=== PATIENT | female | born 1985 | race Caucasian/White ===

== ENCOUNTER 2017-06-20 22:31 | Emergency (ER) | payer OTHER ==
[~2017-06-20] VITALS: Ht 162.6 cm; Wt 76.4 kg
[2017-06-20 22:37] VITALS: BP 140/89; TEMP 98.6
[2017-06-20] MEDS ORDERED: TOPAMAX 100MG100 M1 PO (22:40)
[2017-06-21] MEDS ORDERED: AMITRIPTYLINE H75 M1 PO (01:26)
[2017-06-21] MEDS ORDERED: ZANAFLEX2 MG PO (01:27)
[2017-06-21] MEDS ORDERED: BUSPAR5 MG PO (01:27)
[2017-06-21] MEDS ORDERED: LOW-OGESTREL 281 TAB PO (01:27)
[2017-06-21] MEDS ORDERED: MIDRIN 325 MG-11 CAP PO (01:47)
[2017-06-21] MEDS ORDERED: VOLTAREN 50MG T50 MG PO (01:48)
[2017-06-21 02:56] VITALS: PULSE 84
== END 2017-06-21 02:57 | disposition home or self-care (01) ==
LOC: COL.ER 22:31
DX: G43.909 Migraine, unspecified, not intractable, without status migrainosus (principal); F43.10 Post-traumatic stress disorder, unspecified
CPT/HCPCS: J1100; J1200; J1885; J2765; J7030

== ENCOUNTER 2023-06-08 10:38 | Inpatient (IN) | payer OTHER ==
[~2023-06-08] VITALS: Ht 160 cm; Wt 95.0 kg
[2023-06-08] VITALS (23 sets, daily range): BP systolic 104–141; BP diastolic 57–91; PULSE 82–122; TEMP 97.5–98.4
[~2023-06-08 10:38] MED LIST: AMITRIPTYLINE H75 M1 PO; BUSPAR5 MG PO; LOW-OGESTREL 281 TAB PO; MIDRIN 325 MG-11 CAP PO; TOPAMAX 100MG100 M1 PO; VOLTAREN 50MG T50 MG PO; ZANAFLEX2 MG PO
--- NOTE | 2023-06-08 10:50 | NUR ---
Pt arrived on unit ambulatory and with concerns for contractions every couple minutes since 0630 this morning. Pt denies any leaking of fluid or vaginal bleeding and reports normal movement. Pt reports she is seen at [facility] for OB but was told to come to our hospital since [facility] is on diversion. EFM and toco monitors started. Vital signs WNL. SVE by this RN /-2. Dr. Monge notified. See physician notification for details.
--- NOTE | 2023-06-08 11:45 | NUR ---
Pt off EFM to ambulate and use birthing ball. Ok for intermittent monitoring per Dr. Monge.
[2023-06-08 11:56] LABS: BASO % 0.3 % (0.0-2.0); EOS # 0.1 K/mm3 (0.0-0.7); EOS % 0.4 % (0.0-4.0); GRAN # 10.4 K/mm3 (1.4-6.5); GRAN % 76.7 % (42.2-75.2); HEMATOCRIT 39.1 % (37.0-47.0); HEMOGLOBIN 13.2 g/dl (12.5-16.0); LYMPH # 1.8 K/mm3 (1.2-3.4); LYMPH % 13.4 % (20.0-51.0); MEAN CELL VOLUME 86 fl (80.0-100.0); MEAN CORPUSCULAR HEMOGLOBIN 29 pg (27-31); MEAN CORPUSCULAR HGB CONC 34 g/dl (33.0-37.0); MEAN PLATELET VOLUME 10.7 fl (7.4-10.4); MONO # 1.1 K/mm3 (0.1-0.6); MONO % 8.2 % (1.7-9.3); PLATELET COUNT 292 K/mm3 (130-400); RED BLOOD COUNT 4.53 M/mm3 (4.10-5.30); REDCELL DISTRIBUTION WIDTH-CV 12.6 % (11.5-14.5)
[2023-06-08] MEDS ORDERED: PRENATAL (11:58)
[2023-06-08] MEDS ORDERED: MAG-OX 400400 MG/TAB PO (11:59)
[2023-06-08] MEDS ORDERED: XYZAL5 MG PO (12:00)
--- NOTE | 2023-06-08 13:09 | NUR ---
1252- MARIO HERMAN AT BEDSIDE FOR EPIDURAL PLACEMENT. 1254- PATIENT SITTING UP FOR EPIDURAL PLACEMENT, DIFFICULTY TRACING FHR DUE TO MATERNAL POSITION. 1301- TEST DOSE ADMINISTERED BY MARIO HERMAN. 1309- FHR TRACING RESUMES AT THIS TIME, PATIENT REPOSITIONED TO SEMIFOWLERS. THIS RN REAMINS AT BEDSIDE TO MONITOR VITAL SIGNS.
--- NOTE | 2023-06-08 13:19 | NUR ---
AT BEDSIDE TO CHECK PATIENT PROGRESS, SVE 8 AT THIS TIME, PATIENT UPDATED ON PLAN OF CARE AT THIS TIME.
--- NOTE | 2023-06-08 14:28 | NUR ---
AT BEDSIDE TO ASSESS PROGRESSIOB. AROM AT THIS TIME, CLEAR FLUID, 8CM AT THIS TIME.
--- NOTE | 2023-06-08 15:05 | NUR ---
TO BEDSIDE TO ASSESS PROGRESS. PATIENT /-1 AT THIS TIME. PATIENT ALLOWED TO LABOR DOWN.
--- NOTE | 2023-06-08 15:15 | NUR ---
IN ROOM TO ASSESS PATIENT. HEAD LOWER PER . ROOM PREPARED FOR DELIVERY.
--- NOTE | 2023-06-08 15:28 | NUR ---
1523- PATIENT INSTRUCTED TO PUSH WITH CONTRACTIONS WITH IN ROOM. PATIENT MOVES HEAD TO +2 WITH CONTRACTION 1525- SPONTANEOUS DELIVERY OF INFANT HEAD AND BODY AT THIS TIME. 1528- SPONTANEOUS DELIVERY OF PLACENTA AT THIS TIME. PITOCIN STARTED AT 333mU/HR ORDERED AND PER PROTOCOL.
[2023-06-08] MEDS ORDERED: MOTRIN 800800 MG/TAB PO (18:26)
[2023-06-09 01:35] VITALS: BP 123/74; PULSE 96; TEMP 98.7
[2023-06-09 05:30] VITALS: BP 119/74; PULSE 88; TEMP 98
[2023-06-09 08:20] VITALS: BP 132/67; PULSE 119; TEMP 98.1
--- NOTE | 2023-06-09 17:11 | NUR ---
DISCHARGE INSTRUCTIONS REVIEWED WITH PT REGARDING FOLLOW-UP APPOINTMENT, [facility], PAIN MANAGEMENT, AND REASONS TO CALL/SEE PHYSICIAN. QUESTIONS INVITED AND ANSWERED. PT VERBALIZES UNDERSTANDING.
== END 2023-06-09 17:50 | disposition home or self-care (01) | DRG 807 ==
LOC: LDRO 10:38 → LDR 11:08 → OB 19:30
PROVIDERS: ADMIT Obstetrics & Gynecology
PROC: 10E0XZZ Delivery of Products of Conception, External Approach (ICD-10-PCS; principal; 2023-06-08)
DX: O99.892 Other specified diseases and conditions complicating childbirth (principal); Z37.0 Single live birth; G43.909 Migraine, unspecified, not intractable, without status migrainosus; O76 Abnormality in fetal heart rate and rhythm complicating labor and delivery; O69.81X0 Labor and delivery complicated by cord around neck, without compression, not applicable or unspecified; N20.0 Calculus of kidney; Z3A.38 38 weeks gestation of pregnancy; Z88.0 Allergy status to penicillin; Z88.2 Allergy status to sulfonamides; Z23 Encounter for immunization
CPT/HCPCS: J2590; J2795; J7120